=== PATIENT | female | born 1990 | race Caucasian/White ===

== ENCOUNTER → 2016-04-20 | Outpatient (CLI) | payer MEDICAID | END | disposition home or self-care (01) | LOC: DIB 09:47 | PROVIDERS: ATTEND Obstetrics & Gynecology | DX: O24.419 Gestational diabetes mellitus in pregnancy, unspecified control (principal); O20.0 Threatened abortion; Z3A.37 37 weeks gestation of pregnancy | CPT/HCPCS: 97804 ==

== ENCOUNTER 2016-04-23 10:38 | Inpatient (IN) | payer MEDICAID ==
[~2016-04-23] VITALS: Ht 165.1 cm; Wt 87.5 kg
[2016-04-23 11:08] VITALS: Ht 165.1 cm; Wt 87.5 kg
--- NOTE | 2016-04-23 12:38 | RADRPT ---
PROCEDURE: OB ultrasound for biophysical profile CLINICAL INDICATION: Biophysical profile. . Spontaneous rupture of membranes TECHNIQUE: Multiple sonographic images of the pelvis were obtained. Transabdominal view of the gr avid uterus are available for review. The images were reviewed on a PACS workstation. COMPARISON: 04/23/2016 OB ultrasound FINDINGS: Single intrauterine gestation. Presentation: cephalic. Placenta: Posterior breathing movement = 2/2 tone = 2/2 motion = 2/2 PAULINA = 0/2 PAULINA = 3.1 cm heart rate: 140 beats per minute IMPRESSION: Single intrauterine gestation. Biophysical profile 09/10 New oligohydramnios with PAULINA = 3.1 cm; previously 9.5 cm. Compatible with the reported history of sp ontaneous rupture of membranes. RPTAT: AADD .Robel Mcfarland MD, MD Date Time Electronically viewed and signed by .Robel Mcfarland MD, on 04/23/2016 12:38 .B/
[2016-04-23] MEDS ORDERED: LACTATED RINGER'S 1,000 ML IV SCH (12:44)
[2016-04-23] MEDS ORDERED: MISOPROSTOL 200 MCG TAB PR PRN (13:00)
[2016-04-23] MEDS ORDERED: LACTATED RINGER'S 1,000 ML IV PRN (13:00)
[2016-04-23] MEDS ORDERED: METHYLERGONOVINE 0.2 MG INJ IM PRN (13:00)
[2016-04-23] MEDS ORDERED: CARBOPROST 250 MCG INJ IM PRN (13:00)
[2016-04-23] MEDS ORDERED: OXYTOCIN 30 UNITS/LR 500 ML IV PRN (13:00)
[2016-04-23] MEDS ORDERED: OXYTOCIN 30 UNITS/LR 500 ML IV SCH ×3 (13:00→18:30)
[2016-04-23] MEDS ORDERED: BUTORPHANOL 2 MG INJ IV PRN ×2 (13:00)
[2016-04-23] MEDS ORDERED: LIDOCAINE 1% (MPF) 30 ML INJ INJ PRN (13:00)
[2016-04-23] MEDS ORDERED: IBUPROFEN 600 MG TAB PO PRN (13:30)
--- NOTE | 2016-04-23 13:32 | RADRPT ---
PROCEDURE: US OB. CLINICAL INDICATION: Ruptured membranes TECHNIQUE: Multiple sonographic images of the pelvis were obtained. Transabdominal imaging only w as performed. The images were reviewed on a PACS workstation. COMPARISON: No prior studies are available for comparison. FINDINGS: There is a single viable intrauterine gestation. Cardiac activity is present with 143 beats per min bruno. There is a cephalic presentation. Measurements were made in order to determine age. The results are as follows: BPD = 9.15 cm HC = 33.15 cm AC = 34.20 cm FL = 7.08 cm Gestational age is 37 weeks 3 days and SHERI is 05/11/2016 by ultrasound criteria. Gestational age is 37 weeks 6 days and SHERI is 05/08/2016 by LMP. EFW = 3235 g +/- 485 g (53 %). The placenta is right lateral. There is no evidence for an abruption or placenta previa. IMPRESSION: 1. Single live intrauterine gestation of approximately 37 weeks 3 days by ultrasound criteria. RPTAT: EE .Steve Vizcaino MD, Date Time Electronically viewed and signed by .Steve Vizcaino MD, on 04/23/2016 13:31 .R/
[2016-04-23 13:33] LABS: BASOPHILS % 0.3 % (0.0-2.0); EOSINOPHILS # 0.1 10^3/ul (0.0-0.5); EOSINOPHILS % 0.6 % (0.0-7.0); HEMATOCRIT 34.8 % (37.0-47.0); HEMOGLOBIN 11.7 g/dl (12.0-16.0); LYMPHOCYTES % 14.6 % (15.0-51.0); MEAN CORPUSCULAR HEMOGLOBIN 29.1 pg (29.0-33.0); MEAN CORPUSCULAR HGB CONC 33.6 g/dl (32.0-37.0); MEAN CORPUSCULAR VOLUME 86.7 fl (82.0-101.0); MEAN PLATELET VOLUME 8.7 fl (7.4-10.4); MONOCYTE # 0.6 10^3/ul (0.3-0.9); MONOCYTES % 4.1 % (0.0-11.0); NEUTROPHIL # 10.8 10^3/ul (1.6-7.5); NEUTROPHILS % 80.4 % (39.0-77.0); PLATELET COUNT 282 10^3/UL (140-440); RED BLOOD COUNT 4.01 10^6/ul (4.20-5.40); RED CELL DISTRIBUTION WIDTH 13.8 % (11.5-14.5); UNCORRECTED WBC 13.4 10^3/ul (4.8-10.8); WHITE BLOOD COUNT 13.4 10^3/ul (4.8-10.8)
[2016-04-23 13:38] LABS: CONDITION 1
[2016-04-23 13:42] LABS: INR 0.91; PROTIME 12.3 Sec (12.2-14.2)
[2016-04-23 13:43] LABS: PARTIAL THROMBOPLASTIN TIME 27.6 Sec (25.0-35.0)
[2016-04-23] MEDS ORDERED: MISOPROSTOL 25 MCG CAPSULE PO SCH ×2 (14:06→17:00)
[2016-04-23] MEDS: LACTATED RINGER'S 1,000 ML IV SCH ×2 (14:26→16:18)
[2016-04-23 14:29] VITALS: BP 108/66; PULSE 83; RESP 20
[2016-04-23] MEDS ORDERED: AMPICILLIN 2 GM/NS (PMX) 100 ML IV ONE (16:00)
[2016-04-23] MEDS: DEXTROSE 5%-LR 1,000 ML IV SCH (16:19)
--- NOTE | 2016-04-23 18:08 | PD.PPDC ---
INVESTMENT FUND MANAGER Discharge Instruction Condition Patient Condition: Good Diet Diet: Resume Regular Diet Activity/Restrictions Restrictions: No Sexual Activity Nothing in the Vagina No Stevens No Tampons, douche Follow-up Follow-up with Physician: 3, Week/Weeks Return to clinic for CORN HUSK BALER Instructions: Fever greater than 101 Chills Worsening abdominal pain Excessive Vaginal Bleeding More than 2 pads per hour Unable to tolerate diet OB Instructions: Breast Tenderness Depression Blurried Vision Headache Surgical Instructions: Incisional Drainage Incisional Redness MAYRA CHO MD Apr 23, 2016 18:07
--- NOTE | 2016-04-23 18:17 | PREOPHP ---
DATE OF ADMISSION: 04/23/2016 HISTORY OF PRESENT ILLNESS: Ms. Tiffany Mayers is a 25-year-old 2, para 0, EDC 05/08/2016 intra uterine at 37 weeks and 4 days gestational age, admitted today for induction secondary to premature rupture of membranes/oligohydramnios. The patient complains of leaking fluid since 6:00 t his morning. She denies any vaginal bleeding. Her care took place at [facility]. MEDICAL HISTORY: GDM A1. MEDICATIONS: vitamins. PAST SURGICAL HISTORY: None. OBSTETRICAL HISTORY: x1 missed AB. GYNECOLOGIC HISTORY: 10, regular, 3 to 4 days. Denies any sexually transmitted diseases. Sexually active with 1 partner. SOCIAL HISTORY: Denies any smoking, drugs or alcohol. FAMILY HISTORY: None. PHYSICAL EXAMINATION: HEENT: Within normal. LUNGS: CTA bilateral. CARDIOVASCULAR: S1, S2, regular rhythm. ABDOMEN: Gravid, nontender. Negative CVA bilateral. EXTREMITIES: Negative edema. No calf tenderness. PELVIC: Vaginal exam currently 2 to 3 cm, 80% effaced, -2 station. ASSESSMENT: A 25-year-old 2, para 0, intrauterine at 37 weeks and 4 days gestati onal age, premature rupture of membranes, oligohydramnios, admitted for induction, currently on Cytotec regimen. PLAN: Start Pitocin in approximately 1 hour and expectant vaginal delivery. The patient also miguel ed a vaginal delivery versus . Again, the risks, benefits and alternatives explained. All questions were answered. Dictated By: MAYRA MADDOX/TARSHA Conf#: [id number] DID#: [id number]
[2016-04-23] MEDS ORDERED: AMPICILLIN 1 GM/NS (PMX) 50 ML IV SCH (20:00)
[2016-04-23] MEDS ORDERED: MISOPROSTOL 200 MCG TAB PO ONE (23:30)
[2016-04-24] MEDS: LACTATED RINGER'S 1,000 ML IV SCH ×3 (00:16→21:33)
[2016-04-24] MEDS ORDERED: FENTAnyl 2MCG/ML-ROPIV 0.2% 100 ML ONE (00:28)
[2016-04-24] MEDS ORDERED: NALOXONE (0.4 MG/ML) INJ IV PRN ×3 (01:00→16:00)
[2016-04-24] MEDS ORDERED: DIPHENHYDRAMINE 50 MG INJ IV PRN ×2 (01:00→13:00)
[2016-04-24] MEDS ORDERED: ONDANSETRON 4 MG INJ IV PRN ×3 (01:00→16:00)
[2016-04-24] MEDS ORDERED: FENTAnyl 2MCG/ML-ROPIV 0.2% 100 ML BAG EPI SCH (01:00)
--- NOTE | 2016-04-24 06:50 | QN ---
Documentation Comment pt seen and evaluated no complaints vs stable afebrile abd gravid, nt extremity no edema, no calf tenderness ve fd/ 100/ o fhr cat 1 toco regular ctx a/ iup at term, in labor p/ expectant vaginal delivery MAYRA CHO MD Apr 24, 2016 06:50
[2016-04-24] MEDS ORDERED: AMPICILLIN 2 GM/NS (PMX) 100 ML ONE (06:52)
[2016-04-24] MEDS ORDERED: AMPICILLIN 2 GM/NS (PMX) 100 ML IVPB ONE (07:30)
[2016-04-24 08:00] VITALS: BP 126/58; PULSE 86; RESP 18
[2016-04-24] MEDS: DEXTROSE 5%-LR 1,000 ML IV SCH (08:05)
[2016-04-24] MEDS ORDERED: CEFAZOLIN 2 GM/50 ML (PMX) 50 ML IVPB ONE (09:30)
[2016-04-24] MEDS ORDERED: OXYTOCIN 30 UNITS/LR 500 ML IV SCH (09:30)
[2016-04-24] MEDS ORDERED: CITRIC ACID/NA CITRATE 30 ML CUP PO ONE (09:30)
[2016-04-24] MEDS ORDERED: AMPICILLIN 1 GM/NS (PMX) 50 ML IVPB SCH (11:00)
[2016-04-24] MEDS ORDERED: FENTAnyl 50 MCG/ML VIAL ONE (12:49)
[2016-04-24] MEDS ORDERED: LIDOCAINE 2%/EPI 30 ML INJ ONE (12:49)
[2016-04-24] MEDS ORDERED: SODIUM BICARBONATE (IV ADD) 50 ML ONE (12:50)
[2016-04-24] MEDS ORDERED: HYDROmorphONE 1 MG/ML SYG IV PRN ×4 (13:00→16:00)
[2016-04-24] MEDS ORDERED: ZOLPIDEM 5 MG TAB PO PRN ×2 (13:00→16:00)
[2016-04-24] MEDS ORDERED: morphine SULFATE/PF (10 MG/10 ML) INJ ONE (13:55)
[2016-04-24] MEDS: CEFAZOLIN 2 GM/50 ML (PMX) 50 ML IV SCH ×2 (14:30→23:10)
[2016-04-24] MEDS ORDERED: MISOPROSTOL 200 MCG TAB PR PRN (14:30)
[2016-04-24] MEDS ORDERED: OXYTOCIN 30 UNITS/LR 500 ML IV PRN (14:30)
[2016-04-24] MEDS ORDERED: METHYLERGONOVINE 0.2 MG INJ IM PRN (14:30)
[2016-04-24] MEDS ORDERED: LANOLIN 7 GM TUBE TOP PRN (14:30)
[2016-04-24] MEDS ORDERED: OXYCODONE/ACETAMINOPHEN (5/325) TAB PO PRN (14:30)
[2016-04-24] MEDS ORDERED: CARBOPROST 250 MCG INJ IM PRN (14:30)
[2016-04-24 17:30] VITALS: BP 131/64; PULSE 103; RESP 20
[2016-04-24] MEDS: IBUPROFEN 600 MG TAB PO SCH ×2 (17:57→23:46)
[2016-04-24] MEDS: DIPHENHYDRAMINE 50 MG INJ IV PRN (18:38)
[2016-04-24 19:55] VITALS: BP 125/73; PULSE 76; RESP 18
[2016-04-24] MEDS: ACCUCHECK XX SCH (20:05)
[2016-04-24] MEDS: SENNA/DOCUSATE NA (8.6MG/50MG) TAB PO SCH (21:33)
[2016-04-25] VITALS: BP 101/65; PULSE 81; RESP 19
[2016-04-25] MEDS: DIPHENHYDRAMINE 50 MG INJ IV PRN (03:11)
[2016-04-25 04:05] VITALS: BP 113/60; PULSE 74; RESP 18
[2016-04-25] MEDS: LACTATED RINGER'S 1,000 ML IV SCH ×3 (05:31→20:21)
[2016-04-25] MEDS: IBUPROFEN 600 MG TAB PO SCH ×4 (06:00→23:28)
[2016-04-25] MEDS: CEFAZOLIN 2 GM/50 ML (PMX) 50 ML IV SCH (06:17)
[2016-04-25 07:45] VITALS: BP 114/62; PULSE 76; RESP 18
[2016-04-25 07:53] LABS: BASOPHILS % 0.3 % (0.0-2.0); EOSINOPHILS # 0.1 10^3/ul (0.0-0.5); EOSINOPHILS % 0.8 % (0.0-7.0); HEMATOCRIT 27.7 % (37.0-47.0); HEMOGLOBIN 9.4 g/dl (12.0-16.0); LYMPHOCYTES # 2.2 10^3/ul (0.8-2.9); LYMPHOCYTES % 16.9 % (15.0-51.0); MEAN CORPUSCULAR HEMOGLOBIN 29.7 pg (29.0-33.0); MEAN CORPUSCULAR VOLUME 87.2 fl (82.0-101.0); MONOCYTE # 0.8 10^3/ul (0.3-0.9); NEUTROPHIL # 10.1 10^3/ul (1.6-7.5); PLATELET COUNT 211 10^3/UL (140-440); RED BLOOD COUNT 3.18 10^6/ul (4.20-5.40); RED CELL DISTRIBUTION WIDTH 13.7 % (11.5-14.5); UNCORRECTED WBC 13.3 10^3/ul (4.8-10.8); WHITE BLOOD COUNT 13.3 10^3/ul (4.8-10.8)
[2016-04-25 07:57] LABS: CONDITION 1
[2016-04-25] MEDS: SENNA/DOCUSATE NA (8.6MG/50MG) TAB PO SCH ×2 (11:03→21:28)
[2016-04-25 12:44] VITALS: BP 107/57; PULSE 77; RESP 19
--- NOTE | 2016-04-25 15:12 | OPR ---
DATE OF OPERATION: 04/24/2016 PREOPERATIVE DIAGNOSES: A 25-year-old 2, para 0, intrauterine at 37 weeks' gestat ional age, prolonged premature rupture of membranes, arrest in descent. POSTOPERATIVE DIAGNOSIS: A 25-year-old 2, para 0, intrauterine at 37 weeks' gesta tional age, prolonged premature rupture of membranes, arrest in descent. PROCEDURE: Primary low transverse delivery. SURGEON: Mayra Flynn MD DYE HOUSE HELPER: FINDINGS: A viable male, 9 and 9 respectively at 1 and 5 minutes, weight 7 pounds 6 ounces. ESTIMATED BLOOD LOSS: 500 mL. SPECIMEN: None. COMPLICATIONS OF PROCEDURE: None. TYPE OF ANESTHESIA: Epidural. DESCRIPTION OF PROCEDURE: After explaining the risks, benefits and alternatives, the patient consen t signed in chart, the patient was taken to the operating room where epidural anesthesia was found t o be adequate. She was then prepared and draped in a normal sterile fashion in a dorsal supine posi tion with a leftward tilt. A Pfannenstiel skin incision was then made with a scalpel and carried through the underlying layer o f the fascia. The fascia was incised in the midline and incision was extended laterally with Moreno s cissors. The superior aspect of the fascial incision was grasped with curved clamps, elevated and t he underlying rectus muscle was dissected off bluntly. Attention was then turned to the inferior as pect of the incision, which in similar fashion was grasped, tented up with curved clamps and the rec tus muscle was dissected off bluntly. The rectus muscle was in midline, peritoneum identi fied, tented up sharply with Metzenbaum scissors. The peritoneal incision was extended superiorly a nd inferiorly with good visualization of bladder. The bladder blade was then inserted and the vesic outerine peritoneum identified, grasped with pickups and entered sharply with Metzenbaum scissors. This incision was then extended laterally and a bladder flap created digitally. The bladder blade w as then reinserted and the lower segment incised in transverse fashion with a scalpel. The uterine incision was extended laterally. The bladder blade was removed and the 's head delivered atra umatically. The nose and mouth were suctioned. Cord clamped and cut. The infant was handed off to awaiting culinary worker. The placenta was then removed. The uterus exteriorized and cleared of all clots and debris. The uterine incision was repaired with 1-0 chromic in a running locked fashion. A second layer of the same suture was used for imbrication obtaining excellent hemostasis. The uter us was returned to the abdomen. The gutters were cleared of all clots. The peritoneum and rectus abdominis muscles were reapproximated with 2-0 Vicryl in an interrupted fa shion. The fascia was reapproximated with 0 Vicryl in a running fashion. The subcutaneous tissue w as reapproximated with 2-0 plain gut in a running fashion. The skin was closed with zach. The p atient tolerated the procedure well. Sponge, lap and needle counts were correct x2. The patient wa s taken to recovery room in stable condition. Dictated By: MAYRA MADDOX/TARSHA Conf#: [id number] DID#: [id number]
[2016-04-25 15:45] VITALS: BP 112/76; PULSE 87; RESP 19
[2016-04-25 19:30] VITALS: BP 123/71; PULSE 75; RESP 19
[2016-04-25] MEDS: ACCUCHECK XX SCH ×2 (20:05→20:20)
[2016-04-26 03:30] VITALS: BP 107/61; PULSE 67; RESP 18
[2016-04-26] MEDS: IBUPROFEN 600 MG TAB PO SCH ×4 (05:32→23:30)
[2016-04-26] MEDS: LACTATED RINGER'S 1,000 ML IV SCH (05:56)
[2016-04-26 07:40] VITALS: BP 100/62; PULSE 74; RESP 18
[2016-04-26] MEDS: ACCUCHECK XX SCH ×2 (08:02→10:54)
[2016-04-26] MEDS: SENNA/DOCUSATE NA (8.6MG/50MG) TAB PO SCH ×2 (08:49→21:18)
[2016-04-26] MEDS: OXYCODONE/ACETAMINOPHEN (5/325) TAB PO PRN (14:56)
[2016-04-26 15:00] VITALS: BP 109/56; PULSE 71; RESP 18
[2016-04-26 19:55] VITALS: BP 110/69; PULSE 79; RESP 17
[2016-04-26] MEDS: FERROUS SULFATE (EC) 325 MG TAB PO SCH (21:18)
[2016-04-27 03:15] VITALS: BP 108/72; PULSE 72; RESP 18
[2016-04-27] MEDS: IBUPROFEN 600 MG TAB PO SCH ×2 (05:25→12:16)
[2016-04-27 08:00] VITALS: BP 104/58; PULSE 78; RESP 18
[2016-04-27] MEDS: ACCUCHECK XX SCH ×2 (08:02→10:52)
[2016-04-27] MEDS: SENNA/DOCUSATE NA (8.6MG/50MG) TAB PO SCH (08:49)
[2016-04-27] MEDS: OXYCODONE/ACETAMINOPHEN (5/325) TAB PO PRN (08:50)
[2016-04-27] MEDS: FERROUS SULFATE (EC) 325 MG TAB PO SCH (08:50)
[2016-04-27] MEDS ORDERED: MEASLES,MUMPS,RUBELLA VACCINE INJ SC* ONE (09:00)
[2016-04-27] MEDS ORDERED: DIPHTH/TET/ACEL PERTUSS (ADULT) 0.5 ML VIAL IM* ONE (09:00)
--- NOTE | 2016-04-27 12:10 | PD.PPDC ---
GENERAL MILLING SUPERINTENDENT Discharge Instruction Condition Patient Condition: Fair Diet Diet: Resume Regular Diet Activity/Restrictions Restrictions: No Lifting No Driving No Sexual Activity Nothing in the Vagina No [place] No Tampons, douche Follow-up Follow-up with Physician: 2, 3, Day/Days, Week/Weeks Provider Information: follow up this wed to remove zach Return to clinic for SENIOR PRODUCT DESIGNER Instructions: Fever greater than 101 Chills Worsening abdominal pain Excessive Vaginal Bleeding More than 2 pads per hour Unable to tolerate diet OB Instructions: Breast Tenderness Depression Blurried Vision Headache Surgical Instructions: Incisional Drainage Incisional Redness MAYRA CHO MD Apr 27, 2016 12:09
--- NOTE | 2016-04-27 21:59 | NSTRPT ---
NST Information Datetime Report Generated by CPN: 04/27/2016 21:59 Datetime: 04/23/2016 09:14 NST Information EGA: 37.6 Test Number: 2 Time on Monitor: 04/23/2016 09:36 Time off Monitor: 04/23/2016 10:02 NST Duration (Min): 26 Reason for NST: Diabetes Mellitus Reason for NST Other: A1DM, (Annotations: Data stored by [facility] on behalf of user) Test and Monitor Explained: Monitor Explained; Test Explained; Verbalized Understanding Temp : 98.2 Pulse: 81 Resp: 18 SBP: 116 DBP: 71 Test Evaluation NST Interventions: Reposition Patient Patient States Movement: Present Contraction Frequency: none FHR Baseline : 145 Variability: Moderate 6-25bpm Accelerations: 15X15 Decelerations: None FHR Category: Category I NST Results: Reactive Provider Notified: Dr Flynn Comments: Pt to u/s, PAULINA 9.5cm, Cephalic, FBS 91. Pt c/o leaking fluid since last night with sm amt bloody discharge. MD notified and pt sent to OB triage for evaluation. 1018-Pt to OB Triage, term labor precautions given, discussed kick counts, follow up appoin tment given, pt verbalizes understanding and denies questions. Electronically Signed By E-Signature: with User ID: [id number] Datetime: 04/20/2016 08:32 NST Information EGA: 37.3 Datetime: 04/20/2016 08:30 NST Duration (Min): 20
--- NOTE | 2016-04-28 05:39 | DS ---
DATE OF ADMISSION: 04/23/2016 DATE OF DISCHARGE: 04/27/2016 PRIMARY DIAGNOSIS: A 25-year-old 2, para 0, intrauterine at 37 weeks' gestational age with premature rupture of membranes, oligohydramnios, arrest in descent. PROCEDURE: Primary low transverse delivery. CONDITION ON DISCHARGE: Stable. ACTIVITY: None per vagina, no lifting x6 weeks. DIET: Regular. MEDICATIONS ON DISCHARGE 1. Motrin 800 mg q.8 hours p.r.n. severe pain, #40. 2. Tylenol 325 mg p.o. q.4 hours p.r.n. mild pain. 3. Colace 100 mg p.o. b.i.d. p.r.n. constipation. 4. Iron 325 mg p.o. b.i.d. DISCHARGE SUMMARY: Ms. Tiffany Mayers is a 25-year-old 2, para 1, status post primary low trans verse delivery on 04/24/2016. She had a viable male, Apgars 9 and 9 respectively at 1 and 5 minutes, weight 7 pounds 6 ounces. She had uneventful postop days 1, 2, and 3. Her incision is c lean, dry, and intact. She is ambulating, tolerating diet, positive flatulence, positive bowel move ment. She will follow up in the office this Wednesday to remove her zach. Dictated By: MAYRA MADDOX/TARSHA Conf#: [id number] DID#: [id number]
== END 2016-04-27 17:43 | disposition home or self-care (01) | DRG 765 ==
LOC: OBT 10:38 → L-D 10:39 → OBT 12:46 → L-D 12:49 → PP1 04-24 17:25
PROVIDERS: ADMIT Obstetrics & Gynecology; ATTEND Obstetrics & Gynecology
PROC: 10D00Z1 Extraction of Products of Conception, Low, Open Approach (ICD-10-PCS; principal; 2016-04-24 12:30)
PROC: 3E00X4Z Introduction of Serum, Toxoid and Vaccine into Skin and Mucous Membranes, External Approach (ICD-10-PCS; 2016-04-27)
DX: O99.02 Anemia complicating childbirth (principal); O41.03X0 Oligohydramnios, third trimester, not applicable or unspecified; O62.1 Secondary uterine inertia; O24.429 Gestational diabetes mellitus in childbirth, unspecified control; Z23 Encounter for immunization; Z3A.37 37 weeks gestation of pregnancy; Z37.0 Single live birth
CPT/HCPCS: 62319; 76815; 76818; 82962; 84112; 85025; 85610; 85730; 86592; 86885; 86900; 86901; 90715; 94760; 99464; G0463; J0290; J0690; J1170; J1200; J2274; J2590; J3010; J7120; J7121

== ENCOUNTER 2017-03-25 13:00 | Day surgery (SDC) | payer SELFPAY ==
[~2017-03-25] VITALS: Wt 82.7 kg
[2017-03-25] VITALS (16 sets, daily range): BP systolic 100–111; BP diastolic 45–68; PULSE 62–76; RESP 12–22; TEMP 98.9
[2017-03-25 14:22] LABS: BASOPHILS % 0.1 % (0.0-2.0); EOSINOPHILS # 0.1 10^3/ul (0.0-0.5); EOSINOPHILS % 1.3 % (0.0-7.0); HEMATOCRIT 31.7 % (37.0-47.0); HEMOGLOBIN 10.1 g/dl (12.0-16.0); LYMPHOCYTES # 1.4 10^3/ul (0.8-2.9); LYMPHOCYTES % 16.4 % (15.0-51.0); MEAN CORPUSCULAR HEMOGLOBIN 25.6 pg (29.0-33.0); MEAN CORPUSCULAR HGB CONC 31.9 g/dl (32.0-37.0); MEAN CORPUSCULAR VOLUME 80.3 fl (82.0-101.0); MEAN PLATELET VOLUME 10.1 fl (7.4-10.4); MONOCYTE # 0.4 10^3/ul (0.3-0.9); MONOCYTES % 4.5 % (0.0-11.0); NEUTROPHIL # 6.5 10^3/ul (1.6-7.5); NEUTROPHILS % 77.1 % (39.0-77.0); PLATELET COUNT 340 10^3/UL (140-415); RED BLOOD COUNT 3.95 10^6/ul (4.20-5.40); RED CELL DISTRIBUTION WIDTH 14.2 % (11.5-14.5); WHITE BLOOD COUNT 8.5 10^3/ul (4.8-10.8)
[2017-03-25 14:48] LABS: UR CLARITY BLOODY (CLEAR); UR COLOR RED (YELLOW)
[2017-03-25 14:49] LABS: ADD UMIC YES; UR BILIRUBIN (Dip) NEGATIVE (NEGATIVE); UR BLOOD (Dip) 3+ mg/dL (NEGATIVE); UR KETONES (Dip) NEGATIVE (NEGATIVE); UR LEUKOCYTE ESTERASE (Dip) NEGATIVE Leu/ul (NEGATIVE); UR NITRITE (Dip) POSITIVE (NEGATIVE); UR TOTAL PROTEIN (Dip) 4+ mg/dl (NEGATIVE); UR UROBILINOGEN (Dip) 4.0 E.U./dL mg/dL (NEGATIVE)
[2017-03-25 14:50] LABS: UR BACTERIA FEW /HPF (NONE SEEN); URINE RBCS >200 /HPF (0)
--- NOTE | 2017-03-25 15:14 | RADRPT ---
PROCEDURE: US Pelvis. CLINICAL INDICATION: Pelvic pain TECHNIQUE: Transabdominal and transvaginal pelvic ultrasound are performed. COMPARISON: None FINDINGS: The uterus is normal in echogenicity and retroverted in orientation. No focal fibroids are identi fied. The endometrium is thickened and distended with echogenic debris and material likely represen ting retained products of conception. No gestational sac is identified. No pole or yolk sac is seen. Both ovaries are identified. There is corpus luteal cyst within the right ovary. No solid or comple x adnexal masses are seen.. Normal Doppler flow is noted of both ovaries. The right ovary measures 2.6 x 3.2 x 1.7 cm, and the left ovary measures 2.9 x 1.8 x 2.3 cm There is no free fluid in the pelvis IMPRESSION: 1. No intrauterine seen. 2. Distended endometrium with debris and blood. This likely represents retained products of concept ion. Follow-up ultrasound is recommended to evaluate for resolution. 3. Corpus luteal cyst within the right ovary. There are no complex or solid adnexal masses. 4. Normal Doppler flow to both ovaries. 5. No free fluid the pelvis RPTAT: HH .Lito Hyatt MD, MD Date Time Electronically viewed and signed by .Lito Hyatt MD, on 03/25/2017 15:13 .W/
[2017-03-25 16:03] LABS: BASOPHILS % 0.1 % (0.0-2.0); EOSINOPHILS # 0.1 10^3/ul (0.0-0.5); EOSINOPHILS % 1.2 % (0.0-7.0); HEMATOCRIT 28.3 % (37.0-47.0); HEMOGLOBIN 9.3 g/dl (12.0-16.0); LYMPHOCYTES # 1.5 10^3/ul (0.8-2.9); LYMPHOCYTES % 20.4 % (15.0-51.0); MEAN CORPUSCULAR HEMOGLOBIN 26.2 pg (29.0-33.0); MEAN CORPUSCULAR HGB CONC 32.9 g/dl (32.0-37.0); MEAN CORPUSCULAR VOLUME 79.7 fl (82.0-101.0); MEAN PLATELET VOLUME 9.8 fl (7.4-10.4); MONOCYTE # 0.3 10^3/ul (0.3-0.9); MONOCYTES % 3.7 % (0.0-11.0); NEUTROPHIL # 5.4 10^3/ul (1.6-7.5); NEUTROPHILS % 74.2 % (39.0-77.0); PLATELET COUNT 307 10^3/UL (140-415); RED BLOOD COUNT 3.55 10^6/ul (4.20-5.40); RED CELL DISTRIBUTION WIDTH 14.4 % (11.5-14.5); WHITE BLOOD COUNT 7.3 10^3/ul (4.8-10.8)
[2017-03-25] MEDS ORDERED: SOD CHLORIDE 0.9% 1,000 ML IV STA (16:27)
--- NOTE | 2017-03-25 16:42 | ERD ---
ER Documentation Chief Complaint Chief Complaint VAG BLEEDING/CLOTS SINCE AM 3 PADS/HR HPI 26-year-old female complaining of vaginal bleeding 1 day. Patient states she is soaking through 3 pads every hour. Complaining of suprapubic pain. Patient believes she is 8 weeks . AO. Patient's SILK SCREEN PAINTER is Dr. Cartagena. ROS All systems reviewed and are negative except as per history of present illness. Medications Home Meds No Active Prescriptions or Reported Meds Allergies Allergies: Coded Allergies: No Known Allergy (Unverified , 11/22/11) PMhx/Soc History of Surgery: No Anesthesia Reaction: No Hx Neurological Disorder: No Hx Respiratory Disorders: No Hx Cardiac Disorders: No Hx Psychiatric Problems: No Hx Miscellaneous Medical Probl: No (NO KNOWN MEDICAL CONDITION) Hx Alcohol Use: No Hx Substance Use: No Hx Tobacco Use: No Physical Exam Vitals Vital Signs Date Time Temp Pulse Resp B/P Pulse Ox O2 Delivery O2 Flow Rate FiO2 03/25/17 13:06 99.5 88 20 127/79 100 Physical Exam GENERAL: The patient is well-appearing, well-nourished, in no acute distress CHEST: Clear to auscultation bilaterally. There are no rales, wheezes or rhonchi. HEART: Regular rate and rhythm. No murmurs, clicks, rubs or gallops. No S3 or S4. ABDOMEN:Soft, nontender and nondistended. Good bowel sounds. No rebound or guarding. No gross peritonitis. No gross organomegaly or masses. No Caceres sign or McBurney point tenderness. BACK: No midline or flank tenderness. : Blood pooling within the vaginal vault. OS appears to be open. Result Diagram: 03/25/17 1515 Results 24 hrs Laboratory Tests Test 03/25/17 14:05 03/25/17 15:15 White Blood Count 8.510^3/ul 7.310^3/ul Red Blood Count 3.9510^6/ul 3.5510^6/ul Hemoglobin 10.1g/dl 9.3g/dl Hematocrit 31.7% 28.3% Mean Corpuscular Volume 80.3fl 79.7fl Mean Corpuscular Hemoglobin 25.6pg 26.2pg Mean Corpuscular Hemoglobin Concent 31.9g/dl 32.9g/dl Red Cell Distribution Width 14.2% 14.4% Platelet Count 58765^3/UL 41725^3/UL Mean Platelet Volume 10.1fl 9.8fl Neutrophils % 77.1% 74.2% Lymphocytes % 16.4% 20.4% Monocytes % 4.5% 3.7% Eosinophils % 1.3% 1.2% Basophils % 0.1% 0.1% Nucleated Red Blood Cells % 0.0/100WBC 0.0/100WBC Neutrophils # 6.510^3/ul 5.410^3/ul Lymphocytes # 1.410^3/ul 1.510^3/ul Monocytes # 0.410^3/ul 0.310^3/ul Eosinophils # 0.110^3/ul 0.110^3/ul Basophils # 0.010^3/ul 0.010^3/ul Nucleated Red Blood Cells # 0.010^3/ul 0.010^3/ul Urine Color RED Urine Clarity BLOODY Urine pH 7.0 Urine Specific [place] 1.025 Urine Ketones NEGATIVEmg/dL Urine Nitrite POSITIVEmg/dL Urine Bilirubin NEGATIVEmg/dL Urine Urobilinogen 4.0 E.U./dLmg/dL Urine Leukocyte Esterase NEGATIVELeu/ul Urine Microscopic RBC >200/HPF Urine Microscopic WBC 0-2/HPF Urine Bacteria FEW/HPF Urine Hemoglobin 3+mg/dL Urine Glucose 0.1%mg/dL Urine Total Protein 4+mg/dl Beta HCG, Quantitative 77972.0mIU/ml Current Medications Medications (Trade) Dose Ordered Sig/Shena Route PRN Reason Start Time Stop Time Status Last Admin Dose Admin Sodium Chloride (NS) 1,000 ml @ 1,000 mls/hr Q1H STAT IV 03/25/17 16:27 03/25/17 17:26 Procedures/MDM DIAGNOSTIC IMAGING REPORT Patient: NATE SINGER : 1990 Age: 26 Sex: F MR #: [id number] DOS: 03/25/17 1341 Ordering MD: TORIBIO ANDERSON PA-C Location: [facility] Room/Bed: PROCEDURE: US Pelvis. CLINICAL INDICATION: Pelvic pain TECHNIQUE: Transabdominal and transvaginal pelvic ultrasound are performed. COMPARISON: None FINDINGS: The uterus is normal in echogenicity and retroverted in orientation. No focal fibroids are identified. The endometrium is thickened and distended with echogenic debris and material likely representing retained products of conception. No gestational sac is identified. No pole or yolk sac is seen. Both ovaries are identified. There is corpus luteal cyst within the right ovary. No solid or complex adnexal masses are seen.. Normal Doppler flow is noted of both ovaries. The right ovary measures 2.6 x 3.2 x 1.7 cm, and the left ovary measures 2.9 x 1.8 x 2.3 cm There is no free fluid in the pelvis IMPRESSION: 1. No intrauterine seen. 2. Distended endometrium with debris and blood. This likely represents retained products of conception. Follow-up ultrasound is recommended to evaluate for resolution. 3. Corpus luteal cyst within the right ovary. There are no complex or solid adnexal masses. 4. Normal Doppler flow to both ovaries. 5. No free fluid the pelvis ER Course: Consulted Dr. Lockwood for need of D&C. Patient is stable but will be admitted to OR for D&C. 1L NS given in ED. MDM: 26 yr old female complaining of vaginal bleeding. Patient will be admitted under the care of Dr. Lockwood for D&C. Patient is stable on reevaluation. I have low suspicion for ectopic . I have low suspicion for other pelvic emergencies. Patient does have a urinary tract infection. Departure Diagnosis: Primary Impression: Retained products of conception Additional Impression: UTI (urinary tract infection) Condition: Serious KATELIN ANDERSON PA-C Mar 25, 2017 16:42
--- NOTE | 2017-03-25 17:30 | HP ---
Date/Time of Note Date/Time of Note DATE: 03/25/17 TIME: 17:18 Assessment/Plan VTE Prophylaxis VTE Prophylaxis Intervention: ambulation HPI/ROS Admit Date/Time Admit Date/Time March 25, 2017 History and physical as well as emergency room consult. This patient is a 20 years old, 2 para 1 1, Her the last menstrual period was 01/07/2017. She was and started bleeding, expelled part of the products of conception in the emergency room ' I examined her in emergency room and scheduled for a D&C. When I interviewed her she mentioned that she has no allergy, she had no other operations or any procedure except for section for her first .. No other major medical problem. Her last menstrual period was January 07, 2017 which makes it about 10 weeks . On vaginal examination she has vaginal bleeding , otherwise vagina are normal ,cervix is 1 finger open, the uterus is about 7 or 7 a half weeks gestational size A abdomen is soft, no CVA tenderness, ROS Laboratory Tests Test 03/25/17 14:05 03/25/17 15:15 White Blood Count 8.510^3/ul 7.310^3/ul Red Blood Count 3.9510^6/ul 3.5510^6/ul Hemoglobin 10.1g/dl 9.3g/dl Hematocrit 31.7% 28.3% Mean Corpuscular Volume 80.3fl 79.7fl Mean Corpuscular Hemoglobin 25.6pg 26.2pg Mean Corpuscular Hemoglobin Concent 31.9g/dl 32.9g/dl Red Cell Distribution Width 14.2% 14.4% Platelet Count 18484^3/UL 79622^3/UL Mean Platelet Volume 10.1fl 9.8fl Neutrophils % 77.1% 74.2% Lymphocytes % 16.4% 20.4% Monocytes % 4.5% 3.7% Eosinophils % 1.3% 1.2% Basophils % 0.1% 0.1% Nucleated Red Blood Cells % 0.0/100WBC 0.0/100WBC Neutrophils # 6.510^3/ul 5.410^3/ul Lymphocytes # 1.410^3/ul 1.510^3/ul Monocytes # 0.410^3/ul 0.310^3/ul Eosinophils # 0.110^3/ul 0.110^3/ul Basophils # 0.010^3/ul 0.010^3/ul Nucleated Red Blood Cells # 0.010^3/ul 0.010^3/ul Urine Color RED Urine Clarity BLOODY Urine pH 7.0 Urine Specific [place] 1.025 Urine Ketones NEGATIVEmg/dL Urine Nitrite POSITIVEmg/dL Urine Bilirubin NEGATIVEmg/dL Urine Urobilinogen 4.0 E.U./dLmg/dL Urine Leukocyte Esterase NEGATIVELeu/ul Urine Microscopic RBC >200/HPF Urine Microscopic WBC 0-2/HPF Urine Bacteria FEW/HPF Urine Hemoglobin 3+mg/dL Urine Glucose 0.1%mg/dL Urine Total Protein 4+mg/dl Beta HCG, Quantitative 05866.0mIU/ml Current Medications Medications (Trade) Dose Ordered Sig/Shena Route PRN Reason Start Time Stop Time Status Last Admin Dose Admin Sodium Chloride (NS) 1,000 ml @ 1,000 mls/hr Q1H STAT IV 03/25/17 16:27 03/25/17 17:26 03/25/17 16:46 1,000 MLS/HR Constitutional: No chills, No diaphoresis, No disoriented, No fatigue, No febrile, No improved, No nausea, No no complaints, No other, No poor po, No weight change Eyes: No discharge, No no complaints, No other, No pain, No redness, No visual change ENT: No bleeding, No congestion, No discharge, No dysphagia, No no complaints, No other, No pain, No sore throat Respiratory: No cough, No no complaints, No other, No pain, No pleuritic pain, No shortness of breath, No sputum, No wheezing Cardiovascular: No chest pain, No edema, No lightheadedness, No no complaints, No orthopenea, No other, No palpitations, No paroxysmal nocturnal dyspnea Gastrointestinal: No blood, No constipation, No decreased appetite, No diarrhea , No flatus, No nausea, No no complaints, No other, No pain, No passing stool, No vomiting Genitourinary: other (As I mentioned on pelvic exam she has vaginal bleeding cervix is 1. Open uterus is about 7 weeks size adnexa are normal), No bleeding, No discharge, No dysuria, No flank pain, No hematuria, No no complaints Musculoskeletal: No back pain, No bone/joint pain, No neck pain, No no complaints, No other, No restricted range of motion, No swelling Skin: No bruising, No erythema, No laceration, No no complaints, No other, No pruritis, No rash, No skin lesions Neurologic: No confusion, No dizziness, No focal-weakness, No headache, No no complaints, No other, No seizure, No syncope Endocrine: No dry skin, No no complaints, No other, No polydypsia, No polyuria , No temp intolerance, No weight change Additional Comments Laboratory study ; her hemoglobin 10.1, hematocrit 31.7 , blood type is A positive on ultrasound study the report is: Both ovaries are normal .the uterus is somewhat enlarged containing retained products of conception. Plan: she will undergo a dilatation and curettage soon : end of dictation Exam/Review of Systems Vital Signs Vitals Vital Signs Date Time Temp Pulse Resp B/P Pulse Ox O2 Delivery O2 Flow Rate FiO2 03/25/17 13:06 99.5 88 20 127/79 100 Labs Result Diagram: 03/25/17 1515 JENNIFER MCGEE MD Mar 25, 2017 17:29
[2017-03-25] MEDS ORDERED: LIDOCAINE 2% (SDV) 5 ML INJ ONE (18:05)
[2017-03-25] MEDS ORDERED: FENTAnyl 50 MCG/ML VIAL ONE (18:05)
[2017-03-25] MEDS ORDERED: PROPOFOL 40 ML ONE (18:05)
[2017-03-25] MEDS ORDERED: MIDAZOLAM 1 MG/ML 2 ML INJ ONE (18:05)
[2017-03-25] MEDS ORDERED: DEXAMETHASONE 4 MG/ML 1 ML INJ ONE (18:31)
--- NOTE | 2017-03-25 18:42 | OPR ---
Date/Time of Note Date/Time of Note DATE: 03/25/17 TIME: 18:34 Operative Report Free Text/Dictation March 25, 2017 Operative report on a dilatation and curettage postoperative diagnosis intrauterine about 10 weeks incomplete Procedure: Dilatation and curettage This patient is a 26 years old 2 para 1 with last menstrual period of January 07, 2017 who had a miscarriage and was admitted today to emergency room and underwent a dilatation curettage for incomplete . At the onset of the procedure she was given 2 g of Ancef as a prophylactic measure and patient was placed in lithotomy position vaginal area were prepped and patient was draped first a bimanual pelvic examination was performed the uterus was around 7-8 weeks size the cervix was open then a weighted speculum was placed inside the vagina and the anterior lip of the cervix was picked up by a tenaculum uterus sounded about 7-1/2 to a centimeter it was already dilated and 9 mm plastic cannula was inserted and the uterine content was evacuated same procedure was reported repeated with a 10 mm 1 at the end of the procedure sharp curette was used to ensure the complete evacuation of uterine cavity. At the end of the procedure and patient was transferred to recovery room in stable condition. This specimen was sent for pathological examination Preoperative Diagnosis Incomplete Postoperative Diagnosis Incomplete Operation/Procedure Performed Dilatation and curettage as above Surgeon Vinod Mcgee md Loan Reviewer None Anesthesia Type: general Estimated Blood Loss: 50 - 100 ml's Transfusion none Specimen Endometrial curettings Grafts/Implants none Complications none Pt Condition Post Procedure: stable Disposition: other Procedure Description As above JENNIFER MCGEE MD Mar 25, 2017 18:42
[2017-03-25] MEDS ORDERED: OXYCODONE/ACETAMINOPHEN (5/325) TAB PO PRN ×2 (19:00)
[2017-03-25] MEDS ORDERED: METOCLOPRAMIDE 10 MG INJ IV PRN (19:00)
[2017-03-25] MEDS ORDERED: EPHEDrine SULFATE 50 MG/5 ML SYG IV PRN (19:00)
[2017-03-25] MEDS ORDERED: hydrALAzine 20 MG INJ IV PRN (19:00)
[2017-03-25] MEDS ORDERED: ONDANSETRON 4 MG INJ IV PRN (19:00)
--- NOTE | 2017-03-25 20:30 | DS ---
Date/Time of Note Date/Time of Note DATE: 03/25/17 TIME: 20:27 Discharge Summary Admission/Discharge Info Admit Date/Time Mar 25, 2017 at 18:08 Discharge Date/Time Discharge Diagnosis Post dilatation and curettage for incomplete Patient Condition: Good Procedures D&C for incomplete Hospital Course Due to incomplete underwent a dilatation and curettage she did well and was discharged home Home Meds No Active Prescriptions or Reported Meds Primary Care Provider Joseph Cartagena MD Time spent on discharge: < 30 minutes Pending Labs Laboratory Tests Test 03/25/17 14:05 03/25/17 15:15 White Blood Count 8.510^3/ul (4.8-10.8) 7.310^3/ul (4.8-10.8) Red Blood Count 3.9510^6/ul (4.20-5.40) 3.5510^6/ul (4.20-5.40) Hemoglobin 10.1g/dl (12.0-16.0) 9.3g/dl (12.0-16.0) Hematocrit 31.7% (37.0-47.0) 28.3% (37.0-47.0) Mean Corpuscular Volume 80.3fl (82.0-101.0) 79.7fl (82.0-101.0) Mean Corpuscular Hemoglobin 25.6pg (29.0-33.0) 26.2pg (29.0-33.0) Mean Corpuscular Hemoglobin Concent 31.9g/dl (32.0-37.0) 32.9g/dl (32.0-37.0) Red Cell Distribution Width 14.2% (11.5-14.5) 14.4% (11.5-14.5) Platelet Count 39958^3/UL (140-415) 42846^3/UL (140-415) Mean Platelet Volume 10.1fl (7.4-10.4) 9.8fl (7.4-10.4) Neutrophils % 77.1% (39.0-77.0) 74.2% (39.0-77.0) Lymphocytes % 16.4% (15.0-51.0) 20.4% (15.0-51.0) Monocytes % 4.5% (0.0-11.0) 3.7% (0.0-11.0) Eosinophils % 1.3% (0.0-7.0) 1.2% (0.0-7.0) Basophils % 0.1% (0.0-2.0) 0.1% (0.0-2.0) Nucleated Red Blood Cells % 0.0/100WBC (0.0-0.0) 0.0/100WBC (0.0-0.0) Neutrophils # 6.510^3/ul (1.6-7.5) 5.410^3/ul (1.6-7.5) Lymphocytes # 1.410^3/ul (0.8-2.9) 1.510^3/ul (0.8-2.9) Monocytes # 0.410^3/ul (0.3-0.9) 0.310^3/ul (0.3-0.9) Eosinophils # 0.110^3/ul (0.0-0.5) 0.110^3/ul (0.0-0.5) Basophils # 0.010^3/ul (0.0-0.1) 0.010^3/ul (0.0-0.1) Nucleated Red Blood Cells # 0.010^3/ul (0.0-0.0) 0.010^3/ul (0.0-0.0) Urine Color RED (YELLOW) Urine Clarity BLOODY (CLEAR) Urine pH 7.0 (5.0-9.0) Urine Specific [place] 1.025 (1.003-1.030) Urine Ketones NEGATIVEmg/dL (NEGATIVE) Urine Nitrite POSITIVEmg/dL (NEGATIVE) Urine Bilirubin NEGATIVEmg/dL (NEGATIVE) Urine Urobilinogen 4.0 E.U./dLmg/dL Urine Leukocyte Esterase NEGATIVELeu/ul (NEGATIVE) Urine Microscopic RBC >200/HPF (0) Urine Microscopic WBC 0-2/HPF (0) Urine Bacteria FEW/HPF (NONE SEEN) Urine Hemoglobin 3+mg/dL (NEGATIVE) Urine Glucose 0.1%mg/dL (NEGATIVE) Urine Total Protein 4+mg/dl (NEGATIVE) Beta HCG, Quantitative 83719.0mIU/ml JENNIFER MCGEE MD Mar 25, 2017 20:30
== END 2017-03-25 20:15 | disposition home or self-care (01) ==
LOC: FTE 13:00 → REC 18:08 → UNDOADMIN 18:08 → SDS 18:08
DX: O03.4 Incomplete spontaneous abortion without complication (principal)
CPT/HCPCS: 36415; 59812; 76801; 76817; 81001; 84702; 85025; 86900; 86901; 99285; J1100; J2250; J3010; J7030